=== PATIENT | female | born 2005 | race Caucasian/White ===

== ENCOUNTER 2024-01-30 18:36 | Emergency (ER) | payer MEDICAID ==
[~2024-01-30] VITALS: Ht 157.5 cm; Wt 60.0 kg
[2024-01-30 18:41] VITALS: O2SAT 98
[2024-01-30] MEDS: KETOROLAC 60MG/2ML VIAL IM ONE (21:02)
[2024-01-30] MEDS ORDERED: IBUP-2028 MT (22:18)
[2024-01-30 22:37] VITALS: BP 96/51; PULSE 67; RESP 12; TEMP 98.6
== END 2024-01-30 22:41 | disposition home or self-care (01) ==
LOC: ER 18:36
DX: S09.90XA Unspecified injury of head, initial encounter (principal); M54.2 Cervicalgia; Y08.89XA Assault by other specified means, initial encounter; Y93.89 Activity, other specified; Y92.89 Other specified places as the place of occurrence of the external cause; Y99.8 Other external cause status
CPT/HCPCS: 81025; 73110; 70450; 72125; 96372; 99285; J1885; Z7610